=== PATIENT | male | born 1985 | race Caucasian/White ===

== ENCOUNTER → 2018-12-07 | Outpatient (CLI) | payer BC ==
--- NOTE | 2018-12-07 10:03 | CARD ---
MR#: [id number] Date of Study: 12/07/2018 Ordering Physician: MICHAEL MURRAY, Referring Physician: MICHAEL MURRAY, Tech: Vanessa French KENTRELL APPROVED REPORT EXAM: Two-dimensional and M-mode echocardiogram with Doppler and color Doppler. Other Information Quality : GoodHR: 73bpm Rhythm : NSR INDICATION Bicuspid Aortic Valve 2D DIMENSIONS RVDd2.9 (2.9-3.5cm)Left Atrium(2D)3.8 (1.6-4.0cm) IVSd1.0 (0.7-1.1cm)Aortic Root(2D)3.5 (2.0-3.7cm) LVDd5.2 (3.9-5.9cm)LVOT Diameter2.5 (1.8-2.4cm) PWd1.0 (0.7-1.1cm)LVDs3.7 (2.5-4.0cm) FS (%) 28.9 %SV72.7 ml LVEF(%)55.2 (>50%) M-Mode DIMENSIONS Left Atrium(MM)3.72 (2.5-4.0cm)Aortic Root3.61 (2.2-3.7cm) Aortic Valve AoV Peak Ronald.182.2cm/sAoV VTI36.8cm AO Peak GR.13.3mmHgLVOT Peak Ronald.74.2cm/s AO Mean GR.7mmHgAVA (VMAX)2.04cm2 RAUL (VTI)2.57pt0ND P 1/2 Fswd380jz Mitral Valve MV E Cvjzjrqg87.5cm/sMV DECEL VCWB491lt MV A Jifszilm25.3cm/sE/A Ratio1.4 MV A Ffdzrivc178kd Pulmonary Valve PV Peak Rjiofedz054.0cm/s Pulmonary Vein S1 Sxcpoqyy47.3cm/sD2 Zzzyjbaq91.8cm/s PVa aqdyxtlv90shuz LEFT VENTRICLE The left ventricle is normal size. There is normal left ventricular wall thickness. The left ventricu lar systolic function is normal and the ejection fraction is within normal range. The Ejection Fracti on is 55-60%. There is normal LV segmental wall motion. The left ventricular diastolic function and f illing is normal for age. No left ventricle thrombus noted on this study. RIGHT VENTRICLE The right ventricle is normal size. There is normal right ventricular wall thickness. The right ventr icular systolic function is normal. ATRIA The left atrium size is normal. The right atrium size is normal. The interatrial septum is intact wit h no evidence for an atrial septal defect or patent foramen ovale as noted on 2-D or Doppler imaging. AORTIC VALVE The aortic valve is bicuspid. Doppler and Color Flow revealed mild eccentric aortic regurgitation. Th ere is no significant aortic valvular stenosis. MITRAL VALVE The mitral valve is normal in structure and function. There is no evidence of mitral valve prolapse. There is no mitral valve stenosis. Doppler and Color-flow revealed trace mitral regurgitation. TRICUSPID VALVE The tricuspid valve is normal in structure and function. Doppler and Color Flow revealed trace tricus pid regurgitation. There is no tricuspid valve prolapse or vegetation. There is no tricuspid valve st enosis. PULMONIC VALVE The pulmonary valve is normal in structure and function. Doppler and Color Flow revealed no pulmonic valvular regurgitation. There is no pulmonic valvular stenosis. GREAT VESSELS The aortic root is normal in size. The ascending aorta is Mildly dilated at 3.8cm. The IVC is normal in size and collapses >50% with inspiration. PERICARDIAL EFFUSION There is no evidence of significant pericardial effusion. Critical Notification Critical Value: No <Conclusion> The left ventricular systolic function is normal and the ejection fraction is within normal range. Th e Ejection Fraction is 55-60%. There is normal LV segmental wall motion. The aortic valve is bicuspid. Doppler and Color Flow revealed mild eccentric aortic regurgitation. The ascending aorta is Mildly dilated at 3.8cm. Signed by : Michael Murray, Electronically Approved : 12/07/2018 10:02:59
== END | disposition home or self-care (01) ==
LOC: ECHO 07:46
PROVIDERS: ATTEND Internal Medicine Cardiovascular Disease
DX: I35.1 Nonrheumatic aortic (valve) insufficiency (principal)
CPT/HCPCS: 93306

== ENCOUNTER → 2020-05-03 | Outpatient (CLI) | payer BC ==
--- NOTE | 2020-05-03 14:42 | CARD ---
MR#: [id number] Date of Study: 05/03/2020 Ordering Physician: MICHAEL PANCHAL, Referring Physician: MICHAEL PANCHAL, Tech: Britney Dueñas APPROVED REPORT EXAM: Two-dimensional and M-mode echocardiogram with Doppler and color Doppler. Other Information Quality : GoodHR: 65bpm INDICATION Bicuspid Aortic Valve 2D DIMENSIONS Left Atrium(2D)3.7 (1.6-4.0cm)IVSd1.0 (0.7-1.1cm) Aortic Root(2D)3.5 (2.0-3.7cm)LVDd5.1 (3.9-5.9cm) LVOT Diameter2.3 (1.8-2.4cm)PWd1.0 (0.7-1.1cm) LVDs3.6 (2.5-4.0cm)FS (%) 29.3 % SV70.3 mlLVEF(%)55.8 (>50%) Aortic Valve AoV Peak Ronald.172.5cm/sAoV VTI34.4cm AO Peak GR.11.9mmHgLVOT Peak Ronald.95.1cm/s LVOT VTI 20.65cmAO Mean GR.7mmHg RAUL (VMAX)1.14gf8DPK (VTI)2.54cm2 AI P 1/2 Dunt883ps Mitral Valve MV E Wjuxsfuc09.0cm/sMV DECEL SCXP890me MV A Rngzmaek94.5cm/sMV YDE99uh E/A Ratio2.0MVA (PHT)3.17cm2 TDI E/Lateral E'4.5E/Medial E'7.5 Pulmonary Valve PV Peak Iedgortm390.0cm/sPV Peak Grad.4mmHg Tricuspid Valve TR P. Cbblnlkj487rs/sRAP CRBEZMHY1owZc TR Peak Gr.37bwHbPPXT17niTp Pulmonary Vein S1 Lcjfvnll32.7cm/sD2 Vtmrmdjn37.2cm/s PVa pjymhufb163pstt LEFT VENTRICLE The left ventricle is normal size. There is normal left ventricular wall thickness. The left ventricu lar systolic function is normal and the ejection fraction is within normal range. The Ejection Fracti on is 50-55%. There is normal LV segmental wall motion. The left ventricular diastolic function and f illing is normal for age. RIGHT VENTRICLE The right ventricle is normal size. There is normal right ventricular wall thickness. The right ventr icular systolic function is normal. ATRIA The left atrium size is normal. The right atrium size is normal. The interatrial septum is intact wit h no evidence for an atrial septal defect or patent foramen ovale as noted on 2-D or Doppler imaging. AORTIC VALVE The aortic valve is bicuspid. Doppler and Color Flow revealed mild aortic regurgitation. There is no significant aortic valvular stenosis. Calculated aortic valve area is 2.28 cm2 with maximum pressure gradient of 13 mmHg and mean pressure gradient of 8 mmHg. MITRAL VALVE The mitral valve is normal in structure and function. There is no evidence of mitral valve prolapse. There is no mitral valve stenosis. Doppler and Color-flow revealed trace mitral regurgitation. TRICUSPID VALVE The tricuspid valve is normal in structure and function. Doppler and Color Flow revealed trace tricus pid regurgitation with an estimated PAP of 35 mmHg. There is no tricuspid valve stenosis. PULMONIC VALVE The pulmonic valve is not well visualized. Doppler and Color Flow revealed no pulmonic valvular regur gitation. There is no pulmonic valvular stenosis. GREAT VESSELS The aortic root is normal in size. The IVC is dilated. PERICARDIAL EFFUSION There is no evidence of significant pericardial effusion. Critical Notification Critical Value: No <Conclusion> The left ventricular systolic function is normal and the ejection fraction is within normal range. Th e Ejection Fraction is 50-55%. There is normal LV segmental wall motion. The aortic valve is bicuspid. Doppler and Color Flow revealed mild aortic regurgitation. Signed by : Michael Panchal, Electronically Approved : 05/03/2020 14:41:47
== END | disposition home or self-care (01) ==
LOC: ECHO 07:50
PROVIDERS: ATTEND Internal Medicine Cardiovascular Disease
DX: I35.1 Nonrheumatic aortic (valve) insufficiency (principal)
CPT/HCPCS: 93306

== ENCOUNTER → 2021-05-03 | Outpatient (CLI) | payer OTHER ==
--- NOTE | 2021-05-03 16:40 | CARD ---
MR#: [id number] Date of Study: 05/03/2021 Ordering Physician: MICHAEL MURRAY, Referring Physician: MICHAEL MURRAY, Tech: Aidee Leana, [facility] APPROVED REPORT EXAM: Two-dimensional and M-mode echocardiogram with Doppler and color Doppler. Other Information Quality : AverageHR: 80bpm INDICATION Aortic Valve Disease Bicuspid Aorta 2D DIMENSIONS RVDd3.1 (2.9-3.5cm)Left Atrium(2D)3.2 (1.6-4.0cm) IVSd0.9 (0.7-1.1cm)Aortic Root(2D)3.4 (2.0-3.7cm) LVDd5.7 (3.9-5.9cm)LVOT Diameter2.1 (1.8-2.4cm) PWd0.9 (0.7-1.1cm)LVDs3.4 (2.5-4.0cm) Aortic Valve AoV Peak Ronald.174.0cm/sAoV VTI32.3cm AO Peak GR.12.1mmHgLVOT Peak Ronald.104.0cm/s LVOT VTI 20.99cmAO Mean GR.7mmHg RAUL (VMAX)1.18fy0TOU (VTI)2.33cm2 AI P 1/2 Psed161vf Mitral Valve MV E Mzyhpett12.6cm/sMV DECEL REOH622ft MV A Edoetcje69.0cm/sMV E Mean Gr.2mmHg MV KIT09jbJ/A Ratio1.2 MVA (PHT)3.89cm2 TDI E/Lateral E'4.7E/Medial E'6.8 Pulmonary Valve PV Peak Ktirudwa928.3cm/sPV Peak Grad.5mmHg Tricuspid Valve TR P. Sjdhvxbm477et/sRAP OAMNFWFD8cwUh TR Peak Gr.11icTjFSVB51lkTd Pulmonary Vein S1 Jrptavke22.7cm/sD2 Lvszbnim38.7cm/s PVa inbefolr146vuhc LEFT VENTRICLE The left ventricle is normal size. There is normal left ventricular wall thickness. The left ventricu lar systolic function is normal and the ejection fraction is within normal range. The Ejection Fracti on is 50-55%. There is normal LV segmental wall motion. The left ventricular diastolic function and f illing is normal for age. RIGHT VENTRICLE The right ventricle is normal size. There is normal right ventricular wall thickness. The right ventr icular systolic function is normal. ATRIA The left atrium size is normal. The right atrium size is normal. The interatrial septum is intact wit h no evidence for an atrial septal defect or patent foramen ovale as noted on 2-D or Doppler imaging. AORTIC VALVE The aortic valve is functional bicuspid. Doppler and Color Flow revealed mild aortic regurgitation. T here is no significant aortic valvular stenosis. Calculated aortic valve area is 2.51 cm2 with maximu m pressure gradient of 13 mmHg and mean pressure gradient of 7 mmHg. MITRAL VALVE The mitral valve is normal in structure and function. There is no evidence of mitral valve prolapse. There is no mitral valve stenosis. Doppler and Color-flow revealed trace mitral regurgitation. TRICUSPID VALVE The tricuspid valve is normal in structure and function. Doppler and Color Flow revealed trace tricus pid regurgitation with an estimated PAP of 30 mmHg. There is no tricuspid valve stenosis. PULMONIC VALVE The pulmonary valve is normal in structure and function. Doppler and Color Flow revealed trace pulmon ic valvular regurgitation. GREAT VESSELS The aortic root is normal in size. The ascending aorta is normal in size measuring 3.5 cm. The IVC is dilated. PERICARDIAL EFFUSION There is no evidence of significant pericardial effusion. Critical Notification Critical Value: No <Conclusion> The left ventricle is normal size. The left ventricular systolic function is normal and the ejection fraction is within normal range. The Ejection Fraction is 50-55%. The aortic valve is functional bicuspid. Doppler and Color Flow revealed mild aortic regurgitation. There is no significant aortic valvular stenosis. Doppler and Color-flow revealed trace mitral regurgitation. Doppler and Color Flow revealed trace tricuspid regurgitation with an estimated PAP of 30 mmHg. Signed by : Nathan Rodriguez MD Electronically Approved : 05/03/2021 16:39:39
== END ==
LOC: ECHO 07:45
PROVIDERS: ATTEND Internal Medicine Cardiovascular Disease
DX: I35.1 Nonrheumatic aortic (valve) insufficiency (principal)
CPT/HCPCS: 93306